=== PATIENT | male | born 1975 | race American Indian/Alaskan Native ===

== ENCOUNTER 2016-06-15 04:15 | Emergency (ER) | payer SELFPAY ==
--- NOTE | 2016-06-15 04:25 | Emergency Department Report ---
Chief Complaint: Skin Rash Stated Complaint: ALLERGIC REACTION Time Seen by Provider: 06/15/16 04:25 - HPI History of Present Illness: Patient here reported that he has a chin and a rash to his arms and he said they 're going away because he was using peroxide. Denies any difficulty breathing, swelling of tongue, fever or chills, cough or problems with swallowing. He said the rash is worse yesterday and it was on his arms and legs. Denies any new medication, food, detergent. - ROS Review of Systems: All systems are negative unless stated in HPI above. - Exam Vital Signs: Vital Signs 06/15/16 04:18 Temperature 97.8 F Pulse Rate 74 Respiratory 18 Rate Blood Pressure 137/87 O2 Sat by Pulse 97 Oximetry Physical Exam: General: This is a 40-year-old male well-nourished well-developed in no acute distress. Mouth: Tongue is normal, uvula is midline, oral airway is patent and no pharyngeal erythema. No peritonsillar abscess. Lungs: There are to auscultate bilaterally, no rhonchi wheezes or rales. CV: S1, S2. Regular rate and rhythm. Extremity: No clubbing, cyanosis or edema. +2 pulses. SKIN: Noted maculopapular rashes scattered sparsely to both forearms. No erythema or drainage. MSE screening note: Focused history and physical exam performed. Due to findings the following was ordered:TBD ED Disposition for MSE Condition: Stable
[2016-06-15 04:29] VITALS: BP 137/87
== END 2016-06-15 04:31 | disposition left against medical advice (07) ==
LOC: ED 04:15
DX: R21 Rash and other nonspecific skin eruption (principal); Z53.21 Procedure and treatment not carried out due to patient leaving prior to being seen by health care provider

== ENCOUNTER 2017-04-07 07:25 | Emergency (ER) | payer SELFPAY ==
[2017-04-07] MEDS ORDERED: DUONEB *Not for PRN Use IH ONE (08:14)
[2017-04-07 08:31] LABS: Hematocrit 42.3 % (35.5-45.6); Hemoglobin 14.5 gm/dl (11.8-15.2); Mean Corpuscular HGB Conc 34 % (32-34); Mean Corpuscular Hemoglobin 32 pg (28-32); Mean Corpuscular Volume 93 fl (84-94); Platelet Count 261 K/mm3 (140-440); Red Blood Count 4.53 M/mm3 (3.65-5.03); Red Cell Distribution Width 12.6 % (13.2-15.2); White Blood Count 10.5 K/mm3 (4.5-11.0)
[2017-04-07 08:44] LABS: INR 0.9 (0.87-1.13)
--- NOTE | 2017-04-07 08:44 | XRay Report ---
AP CHEST :04/07/17 07:25:00 CLINICAL: Hypertension. COMPARISON:02/01/16 FINDINGS: Normal heart and pulmonary vasculature. The lungs are mildly hyperexpanded but clear. The bones and soft tissues are normal. IMPRESSION: Mild pulmonary hyperinflation but otherwise normal.
[2017-04-07 08:45] LABS: Partial Thromboplastin Time 36.6 Sec. (24.2-36.6)
[2017-04-07 08:51] LABS: Anion Gap 17 mmol/L; BUN/Creatinine Ratio 14; Blood Urea Nitrogen 13 mg/dL (9-20); Calcium 8.9 mg/dL (8.4-10.2); Carbon Dioxide 25 mmol/L (22-30); Chloride 102.6 mmol/L (98-107); Glucose 89 mg/dL (75-100); Potassium 3.8 mmol/L (3.6-5.0); Sodium 141 mmol/L (137-145)
[2017-04-07 08:53] LABS: Creatine Kinase MB 4.2 ng/mL (0.0-4.0)
[2017-04-07 08:55] LABS: Alanine Aminotransferase 19 units/L (7-56); Albumin 4.1 g/dL (3.9-5); Albumin/Globulin Ratio 1.3 %; Alkaline Phosphatase 64 units/L (35-129); Bilirubin,Direct < 0.2 mg/dL (0-0.2); Creatine Kinase 301 units/L (55-170); Total Protein 7.3 g/dL (6.3-8.2)
[2017-04-07 09:00] LABS: Urine Drugs of Abuse Note Disclamer
[2017-04-07 09:09] LABS: Basophils % (Manual) 0 % (0.0-1.8); Blastocytes % (Manual) 0 %; RBC Morphology Normal
[2017-04-07 09:10] LABS: Diff Status Complete; Platelet Estimate Cons
[2017-04-07 09:11] LABS: Mucus,Urine FEW /HPF
[2017-04-07 09:12] LABS: Bilirubin,Urine NEG (Negative); Blood,Urine SM (Negative); Ketones,Urine TR mg/dL (Negative); Leukocyte Esterase,Urine NEG (Negative); Nitrite,Urine NEG (Negative); Protein,Urine <15 mg/dL mg/dL (Negative)
[2017-04-07 11:06] VITALS: BP 126/77
--- NOTE | 2017-04-07 11:09 | Emergency Department Report ---
ED General Adult HPI - General Chief complaint: Weakness Stated complaint: ASTHMA Time Seen by Provider: 04/07/17 08:11 Source: patient Mode of arrival: Ambulatory Limitations: No Limitations - History of Present Illness Initial comments: Patient admits his last cocaine use was on Wednesday. However his urine drug screen is still positive for cocaine. 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 He complains of a dull ache in the left precordial area that does not radiate. He states he was released from long term about 2 weeks ago. Since then he states he's had poor appetite and sweating at night. He's had no positive PPD test in the past nor any treatment thereof. He is not currently nauseated. He has not been vomiting. He does not complain of shortness of breath. He does have occasional cough. He was wheezing on arrival and was given a neb. Patient was admitted for chest pain the distant past. He cannot recall what tests were done but he had no specific diagnosis. He has no history of vte. He has had no recent traveling. Initially appears that he has a history of B- CCL phenotype but was not diagnosed with lymphoma when a consult to Dr. Murrell was obtained. -: week(s) (poor appetite for weeks) Location: chest Radiation: non-radiation Quality: aching Consistency: now resolved Improves with: none Worsens with: none Associated Symptoms: denies other symptoms (as above indicated) - Related Data Home Medications Medication Instructions Recorded Confirmed Last Taken ALBUTEROL Inhaler [Proair] 2 puff IH QID PRN 04/07/17 04/07/17 Unknown ALBUTEROL NEB's [Proventil] 2.5 mg IH TID PRN 04/07/17 04/07/17 Unknown Allergies Allergy/AdvReac Type Severity Reaction Status Date / Time hydrocodone bitartrate Allergy Rash Verified 01/31/16 15:21 [From Lortab] oxycodone HCl [From Percocet] Allergy Rash Verified 01/31/16 15:21 lactose AdvReac Unknown Unknown Verified 01/31/16 15:21 ED Review of Systems ROS: Stated complaint: ASTHMA Other details as noted in HPI Constitutional: denies: chills, fever Eyes: denies: eye pain, eye discharge, vision change ENT: denies: ear pain, throat pain Respiratory: cough, wheezing, other (no hemoptysis white sputum). denies: shortness of breath Cardiovascular: chest pain. denies: palpitations Endocrine: no symptoms reported, other (sweating at night) Gastrointestinal: nausea. denies: abdominal pain, diarrhea Genitourinary: denies: urgency, dysuria Musculoskeletal: denies: back pain, joint swelling, arthralgia Skin: denies: rash, lesions Neurological: denies: headache, weakness, paresthesias Psychiatric: denies: anxiety, depression Hematological/Lymphatic: denies: easy bleeding, easy bruising ED Past Medical Hx - Past Medical History Previous Medical History?: Yes Hx GERD: Yes Hx Asthma: Yes - Surgical History Past Surgical History?: Yes Hx Appendectomy: Yes - Social History Smoking Status: Current Every Day Smoker Substance Use Type: None - Medications Home Medications: Home Medications Medication Instructions Recorded Confirmed Last Taken Type ALBUTEROL Inhaler [Proair] 2 puff IH QID PRN 04/07/17 04/07/17 Unknown History ALBUTEROL NEB's [Proventil] 2.5 mg IH TID PRN 04/07/17 04/07/17 Unknown History ED Physical Exam - General Limitations: No Limitations General appearance: alert, in no apparent distress - Head Head exam: Present: atraumatic, normocephalic - Eye Eye exam: Present: normal appearance. Absent: scleral icterus - ENT ENT exam: Present: mucous membranes moist - Neck Neck exam: Present: normal inspection - Respiratory Respiratory exam: Present: normal lung sounds bilaterally (after neb treatment) . Absent: respiratory distress - Cardiovascular Cardiovascular Exam: Present: regular rate, normal rhythm. Absent: systolic murmur, diastolic murmur, rubs, gallop - GI/Abdominal GI/Abdominal exam: Present: soft, normal bowel sounds. Absent: distended, tenderness, guarding, rebound, rigid - Rectal Rectal exam: Present: deferred - Extremities Exam Extremities exam: Present: normal inspection - Back Exam Back exam: Present: normal inspection - Neurological Exam Neurological exam: Present: alert, oriented X3, CN II-XII intact. Absent: motor sensory deficit - Psychiatric Psychiatric exam: Present: normal affect, normal mood - Skin Skin exam: Present: warm, dry, intact, normal color. Absent: rash ED Course Vital Signs 04/07/17 04/07/17 04/07/17 07:51 08:12 08:16 Temperature 98.8 F Pulse Rate 77 60 59 L Pulse Rate [ Anterior Bilateral Throughout] Respiratory 20 14 11 L Rate Respiratory Rate [Anterior Bilateral Throughout] Blood Pressure 154/93 128/92 Blood Pressure [Right] O2 Sat by Pulse 100 98 98 Oximetry 04/07/17 04/07/17 04/07/17 08:30 08:45 08:46 Temperature Pulse Rate 58 L 62 Pulse Rate [ 57 L Anterior Bilateral Throughout] Respiratory 15 14 Rate Respiratory 18 Rate [Anterior Bilateral Throughout] Blood Pressure 128/92 128/92 Blood Pressure [Right] O2 Sat by Pulse 99 98 Oximetry 04/07/17 04/07/17 04/07/17 09:00 09:16 09:23 Temperature Pulse Rate 61 64 Pulse Rate [ Anterior Bilateral Throughout] Respiratory 17 15 18 Rate Respiratory Rate [Anterior Bilateral Throughout] Blood Pressure 129/88 129/88 Blood Pressure [Right] O2 Sat by Pulse 99 98 99 Oximetry 04/07/17 04/07/17 04/07/17 09:24 09:30 09:46 Temperature Pulse Rate 62 56 L Pulse Rate [ 62 Anterior Bilateral Throughout] Respiratory 13 14 Rate Respiratory 18 Rate [Anterior Bilateral Throughout] Blood Pressure 129/88 129/88 Blood Pressure [Right] O2 Sat by Pulse 97 98 Oximetry 04/07/17 04/07/17 04/07/17 10:00 10:16 10:30 Temperature Pulse Rate 56 L 55 L 58 L Pulse Rate [ Anterior Bilateral Throughout] Respiratory 15 14 16 Rate Respiratory Rate [Anterior Bilateral Throughout] Blood Pressure 119/67 119/67 119/67 Blood Pressure [Right] O2 Sat by Pulse 97 96 99 Oximetry 04/07/17 04/07/17 04/07/17 10:46 11:00 11:03 Temperature Pulse Rate 63 67 62 Pulse Rate [ Anterior Bilateral Throughout] Respiratory 21 13 Rate Respiratory Rate [Anterior Bilateral Throughout] Blood Pressure 119/67 119/67 Blood Pressure [Right] O2 Sat by Pulse 99 99 Oximetry 04/07/17 11:05 Temperature 98.8 F Pulse Rate 62 Pulse Rate [ Anterior Bilateral Throughout] Respiratory 18 Rate Respiratory Rate [Anterior Bilateral Throughout] Blood Pressure Blood Pressure 126/77 [Right] O2 Sat by Pulse 100 Oximetry - Reevaluation(s) Reevaluation #1: Patient was advised that admission was warranted. He declines admission and wants to sign out AMA. I told him that his continued cocaine abuse. Certainly lead to and we have not adequately worked up his chest pain. He knows that he is leaving premature and is aware of the risks and is mentally competent to refuse treatment. I informed him that he has some degree of rhabdo and that continuing cocaine abuse. Lead to kidney failure as well. He is aware of that. He states he is ready to leave. 04/07/17 11:10 Reevaluation #3: The patient left before he could be prescribed anything for his asthma or bronchitis or referred for follow-up care. 04/07/17 11:24 ED Medical Decision Making - Lab Data Result diagrams: 04/07/17 08:16 04/07/17 08:16 Laboratory Results - last 24 hr 04/07/17 04/07/17 04/07/17 08:06 08:16 08:16 WBC 10.5 RBC 4.53 Hgb 14.5 Hct 42.3 MCV 93 MCH 32 MCHC 34 RDW 12.6 L Plt Count 261 Add Manual Diff Complete Total Counted 100 Seg Neuts % (Manual) 35.0 L Band Neutrophils % 0 Lymphocytes % (Manual) 49.0 H Reactive Lymphs % (Man) 2.0 Monocytes % (Manual) 13.0 H Eosinophils % (Manual) 1.0 Basophils % (Manual) 0 Metamyelocytes % 0 Myelocytes % 0 Promyelocytes % 0 Blast Cells % 0 Nucleated RBC % Not Reportable Seg Neutrophils # Man 3.7 Band Neutrophils # 0.0 Lymphocytes # (Manual) 5.1 Abs React Lymphs (Man) 0.2 Monocytes # (Manual) 1.4 H Eosinophils # (Manual) 0.1 Basophils # (Manual) 0.0 Metamyelocytes # 0.0 Myelocytes # 0.0 Promyelocytes # 0.0 Blast Cells # 0.0 WBC Morphology Not Reportable Hypersegmented Neuts Not Reportable Hyposegmented Neuts Not Reportable Hypogranular Neuts Not Reportable Smudge Cells Not Reportable Toxic Granulation Not Reportable Toxic Vacuolation Not Reportable Dohle Bodies Not Reportable Pelger-Huet Anomaly Not Reportable Isaias Rods Not Reportable Platelet Estimate Cons Clumped Platelets Not Reportable Plt Clumps, EDTA Not Reportable Large Platelets Not Reportable Giant Platelets Not Reportable Platelet Satelliting Not Reportable Plt Morphology Comment Not Reportable RBC Morphology Normal Dimorphic RBCs Not Reportable Polychromasia Not Reportable Hypochromasia Not Reportable Poikilocytosis Not Reportable Anisocytosis Not Reportable Microcytosis Not Reportable Macrocytosis Not Reportable Spherocytes Not Reportable Pappenheimer Bodies Not Reportable Sickle Cells Not Reportable Target Cells Not Reportable Tear Drop Cells Not Reportable Ovalocytes Not Reportable Helmet Cells Not Reportable [place] Bodies Not Reportable [place] Rings Not Reportable [place] Cells Not Reportable Bite Cells Not Reportable Crenated Cell Not Reportable Elliptocytes Not Reportable Acanthocytes (Spur) Not Reportable Rouleaux Not Reportable Hemoglobin C Crystals Not Reportable Schistocytes Not Reportable Malaria parasites Not Reportable Sam Bodies Not Reportable Hem Pathologist Commnt No PT INR APTT Sodium 141 Potassium 3.8 Chloride 102.6 Carbon Dioxide 25 Anion Gap 17 BUN 13 Creatinine 0.9 Estimated GFR > 60 BUN/Creatinine Ratio 14 Glucose 89 POC Glucose 88 Calcium 8.9 Magnesium Total Bilirubin Direct Bilirubin AST ALT Alkaline Phosphatase Total Creatine Kinase CK-MB (CK-2) CK-MB (CK-2) Rel Index Troponin T < 0.010 NT-Pro-B Natriuret Pep Total Protein Albumin Albumin/Globulin Ratio Urine Color Urine Turbidity Urine pH Ur Specific [place] Urine Protein Urine Glucose (UA) Urine Ketones Urine Blood Urine Nitrite Ur Reducing Substances Urine Bilirubin Urine Ictotest Urine Urobilinogen Ur Leukocyte Esterase Urine WBC (Auto) Urine RBC (Auto) U Epithel Cells (Auto) Urine Mucus Urine Opiates Screen Urine Methadone Screen Ur Barbiturates Screen Ur Phencyclidine Scrn Ur Amphetamines Screen U Benzodiazepines Scrn Urine Cocaine Screen U Marijuana (THC) Screen Drugs of Abuse Note 04/07/17 04/07/17 04/07/17 08:16 08:16 08:55 WBC RBC Hgb Hct MCV MCH MCHC RDW Plt Count Add Manual Diff Total Counted Seg Neuts % (Manual) Band Neutrophils % Lymphocytes % (Manual) Reactive Lymphs % (Man) Monocytes % (Manual) Eosinophils % (Manual) Basophils % (Manual) Metamyelocytes % Myelocytes % Promyelocytes % Blast Cells % Nucleated RBC % Seg Neutrophils # Man Band Neutrophils # Lymphocytes # (Manual) Abs React Lymphs (Man) Monocytes # (Manual) Eosinophils # (Manual) Basophils # (Manual) Metamyelocytes # Myelocytes # Promyelocytes # Blast Cells # WBC Morphology Hypersegmented Neuts Hyposegmented Neuts Hypogranular Neuts Smudge Cells Toxic Granulation Toxic Vacuolation Dohle Bodies Pelger-Huet Anomaly Isaias Rods Platelet Estimate Clumped Platelets Plt Clumps, EDTA Large Platelets Giant Platelets Platelet Satelliting Plt Morphology Comment RBC Morphology Dimorphic RBCs Polychromasia Hypochromasia Poikilocytosis Anisocytosis Microcytosis Macrocytosis Spherocytes Pappenheimer Bodies Sickle Cells Target Cells Tear Drop Cells Ovalocytes Helmet Cells [place] Bodies [place] Rings [place] Cells Bite Cells Crenated Cell Elliptocytes Acanthocytes (Spur) Rouleaux Hemoglobin C Crystals Schistocytes Malaria parasites Sam Bodies Hem Pathologist Commnt PT 12.6 INR 0.90 APTT 36.6 Sodium Potassium Chloride Carbon Dioxide Anion Gap BUN Creatinine Estimated GFR BUN/Creatinine Ratio Glucose POC Glucose Calcium Magnesium 2.00 Total Bilirubin 0.40 Direct Bilirubin < 0.2 AST 19 ALT 19 Alkaline Phosphatase 64 Total Creatine Kinase 301 H CK-MB (CK-2) 4.2 H CK-MB (CK-2) Rel Index 1.3 Troponin T NT-Pro-B Natriuret Pep 15.88 Total Protein 7.3 Albumin 4.1 Albumin/Globulin Ratio 1.3 Urine Color Yellow Urine Turbidity Clear Urine pH 5.0 Ur Specific [place] 1.026 Urine Protein <15 mg/dl Urine Glucose (UA) Neg Urine Ketones Tr Urine Blood Sm Urine Nitrite Neg Ur Reducing Substances Not Reportable Urine Bilirubin Neg Urine Ictotest Not Reportable Urine Urobilinogen 4.0 Ur Leukocyte Esterase Neg Urine WBC (Auto) 1.0 Urine RBC (Auto) 7.0 U Epithel Cells (Auto) < 1.0 Urine Mucus Few Urine Opiates Screen Urine Methadone Screen Ur Barbiturates Screen Ur Phencyclidine Scrn Ur Amphetamines Screen U Benzodiazepines Scrn Urine Cocaine Screen U Marijuana (THC) Screen Drugs of Abuse Note 04/07/17 08:55 WBC RBC Hgb Hct MCV MCH MCHC RDW Plt Count Add Manual Diff Total Counted Seg Neuts % (Manual) Band Neutrophils % Lymphocytes % (Manual) Reactive Lymphs % (Man) Monocytes % (Manual) Eosinophils % (Manual) Basophils % (Manual) Metamyelocytes % Myelocytes % Promyelocytes % Blast Cells % Nucleated RBC % Seg Neutrophils # Man Band Neutrophils # Lymphocytes # (Manual) Abs React Lymphs (Man) Monocytes # (Manual) Eosinophils # (Manual) Basophils # (Manual) Metamyelocytes # Myelocytes # Promyelocytes # Blast Cells # WBC Morphology Hypersegmented Neuts Hyposegmented Neuts Hypogranular Neuts Smudge Cells Toxic Granulation Toxic Vacuolation Dohle Bodies Pelger-Huet Anomaly Isaias Rods Platelet Estimate Clumped Platelets Plt Clumps, EDTA Large Platelets Giant Platelets Platelet Satelliting Plt Morphology Comment RBC Morphology Dimorphic RBCs Polychromasia Hypochromasia Poikilocytosis Anisocytosis Microcytosis Macrocytosis Spherocytes Pappenheimer Bodies Sickle Cells Target Cells Tear Drop Cells Ovalocytes Helmet Cells [place] Bodies [place] Rings [place] Cells Bite Cells Crenated Cell Elliptocytes Acanthocytes (Spur) Rouleaux Hemoglobin C Crystals Schistocytes Malaria parasites Sam Bodies Hem Pathologist Commnt PT INR APTT Sodium Potassium Chloride Carbon Dioxide Anion Gap BUN Creatinine Estimated GFR BUN/Creatinine Ratio Glucose POC Glucose Calcium Magnesium Total Bilirubin Direct Bilirubin AST ALT Alkaline Phosphatase Total Creatine Kinase CK-MB (CK-2) CK-MB (CK-2) Rel Index Troponin T NT-Pro-B Natriuret Pep Total Protein Albumin Albumin/Globulin Ratio Urine Color Urine Turbidity Urine pH Ur Specific [place] Urine Protein Urine Glucose (UA) Urine Ketones Urine Blood Urine Nitrite Ur Reducing Substances Urine Bilirubin Urine Ictotest Urine Urobilinogen Ur Leukocyte Esterase Urine WBC (Auto) Urine RBC (Auto) U Epithel Cells (Auto) Urine Mucus Urine Opiates Screen Presumptive negative Urine Methadone Screen Presumptive negative Ur Barbiturates Screen Presumptive negative Ur Phencyclidine Scrn Presumptive negative Ur Amphetamines Screen Presumptive negative U Benzodiazepines Scrn Presumptive negative Urine Cocaine Screen Presumptive positive U Marijuana (THC) Screen Presumptive negative Drugs of Abuse Note Disclamer - EKG Data -: EKG Interpreted by [place] EKG shows normal: sinus rhythm, axis, intervals, QRS complexes, ST-T waves Rate: bradycardia - EKG Data Interpretation: LVH (consider) - Radiology Data Radiology results: report reviewed (no acute process) Critical care attestation.: If time is entered above; I have spent that time in minutes in the direct care of this critically ill patient, excluding procedure time. ED Disposition Clinical Impression: Cocaine abuse, Monoclonal B-cell lymphocytosis Chest pain Qualifiers: Chest pain type: unspecified Qualified Code(s): R07.9 - Chest pain, unspecified Asthma exacerbation Qualifiers: Asthma severity: moderate Asthma persistence: persistent Qualified Code(s): J45.41 - Moderate persistent asthma with (acute) exacerbation Disposition: DC-07 LEFT AGAINST MED ADVICE Is pt being admited?: No Does the pt Need Aspirin: Yes (left AMA) Condition: Stable Instructions: Chest Pain (ED) Referrals: PRIMARY CARE, [Primary Care Provider] - 3-5 Days Time of Disposition: 11:27
== END 2017-04-07 11:45 | disposition left against medical advice (07) ==
LOC: ED 07:25
DX: J45.41 Moderate persistent asthma with (acute) exacerbation (principal); F14.10 Cocaine abuse, uncomplicated; D72.820 Lymphocytosis (symptomatic); K21.9 Gastro-esophageal reflux disease without esophagitis; J45.909 Unspecified asthma, uncomplicated
CPT/HCPCS: 36415; 71010; 80048; 80074; 80307; 81001; 82550; 82553; 82962; 83735; 83880; 84484; 85007; 85025; 85610; 85730; 93005; 93010; 94640

== ENCOUNTER 2017-12-27 14:57 | Emergency (ER) | payer SELFPAY ==
[2017-12-27 15:23] VITALS: BP 118/75
--- NOTE | 2017-12-27 16:42 | Emergency Department Report ---
ED Back Pain/Injury HPI - General Chief Complaint: Back Pain/Injury Stated Complaint: NECK PAIN/BODY ACHE/ Time Seen by Provider: 12/27/17 16:28 Source: patient Limitations: No Limitations - History of Present Illness Initial Comments: Patient is a 42-year-old -[place] male who is presenting with neck and back strain. Patient was helping remove some heavy boxes several days ago for a neighbor and is now having muscle spasm and pain. Patient states that he also has had a rash on his face and torso and arms. Patient's sleeps in a shelter as been there for approximately 6 weeks. Patient denies any nausea vomiting diarrhea fevers or chills. Quality: aching - Related Data Home Medications Medication Instructions Recorded Confirmed Last Taken ALBUTEROL Inhaler [Proair] 2 puff IH QID PRN 04/07/17 04/07/17 Unknown ALBUTEROL NEB's [Proventil] 2.5 mg IH TID PRN 04/07/17 04/07/17 Unknown Previous Rx's Medication Instructions Recorded Last Taken Type ALBUTEROL Inhaler [ProAir HFA 2 puff IH QID PRN #1 inhalation 04/07/17 Unknown Rx Inhaler] Azithromycin [Zithromax Z-MANUEL] 250 mg PO DAILY #6 tablet 04/07/17 Unknown Rx Ibuprofen [Motrin] 800 mg PO Q8HR PRN #20 tablet 12/27/17 Unknown Rx Permethrin [Elimite] 60 gm TP ONCE #1 bottle 12/27/17 Unknown Rx Triamcinolone 0.1% [Kenalog 0.1% 1 applic TP TID #1 tube 12/27/17 Unknown Rx CREAM] methOCARBAMOL [Robaxin TAB] 500 mg PO Q6H PRN #15 tablet 12/27/17 Unknown Rx predniSONE [Deltasone] 20 mg PO QDAY #5 tab 12/27/17 Unknown Rx Allergies Allergy/AdvReac Type Severity Reaction Status Date / Time morphine Allergy Unknown Verified 12/27/17 15:23 lactose AdvReac Unknown Unknown Verified 01/31/16 15:21 ED Review of Systems ROS: Stated complaint: NECK PAIN/BODY ACHE/ Other details as noted in HPI Comment: All other systems reviewed and negative ED Past Medical Hx - Past Medical History drug and alcohol abuse, recurrent back pain Family history: no significant family history (1/2.5 pack per day) ED Back Pain Physical Exam - Exam General: Vital signs noted. No distress. Alert and acting appropriately. He has multiple raised papules diffusely on the face neck and torso and arms consistent with possible insect bites. These are not present on the palms and soles or in the webspaces Back/Abdomen: No Abdominal Tenderness, No Perithoracic Tenderness (tenderness of rthe Bilateral trapizius), No Perilumbar Tenderness, No Sacroiliac Tenderness , No Flank Tenderness, No Straight Leg Raise Pain Neuro: Yes Normal Sensation, Yes Normal DTR's, Yes Normal Gait, No Motor Weakness ED Course Vital Signs 12/27/17 15:19 Temperature 98.3 F Pulse Rate 98 H Respiratory 18 Rate Blood Pressure 118/75 O2 Sat by Pulse 99 Oximetry Critical care attestation.: If time is entered above; I have spent that time in minutes in the direct care of this critically ill patient, excluding procedure time. ED Disposition Clinical Impression: Muscle strain, Dermatitis Disposition: DC-01 TO HOME OR SELFCARE Is pt being admited?: No Does the pt Need Aspirin: No Condition: Stable Instructions: Muscle Strain (ED) Additional Instructions: The rash is consistent with possible insect bites. Please be sure to wash all sheets in hot water and medication prescribed for him. Referrals: PRIMARY CARE, [Primary Care Provider] - 3-5 Days Time of Disposition: 16:46
== END 2017-12-27 16:54 | disposition home or self-care (01) ==
LOC: ED 14:57
DX: S16.1XXA Strain of muscle, fascia and tendon at neck level, initial encounter (principal); S29.012A Strain of muscle and tendon of back wall of thorax, initial encounter; L30.9 Dermatitis, unspecified; Z88.6 Allergy status to analgesic agent; Z88.8 Allergy status to other drugs, medicaments and biological substances; X50.0XXA Overexertion from strenuous movement or load, initial encounter; Y93.89 Activity, other specified; Y99.8 Other external cause status; Y92.89 Other specified places as the place of occurrence of the external cause
CPT/HCPCS: 99282

== ENCOUNTER 2019-03-10 12:25 | Emergency (ER) | payer SELFPAY ==
[2019-03-10 13:03] VITALS: BP 128/88
--- NOTE | 2019-03-10 13:08 | Emergency Department Report ---
- General Chief Complaint: Upper Respiratory Infection Stated Complaint: CHEST PAIN/BIJAN/BODY ACHE Time Seen by Provider: 03/10/19 13:03 Source: patient Mode of arrival: Ambulatory Limitations: No Limitations - History of Present Illness MD Complaint: cough, sore throat, rhinorrhea, nasal congestion - Related Data Home Medications Medication Instructions Recorded Confirmed Last Taken ALBUTEROL Inhaler (OR & NICU) 2 puff IH QID PRN 04/07/17 04/07/17 Unknown [Proair] ALBUTEROL NEB's [Proventil] 2.5 mg IH TID PRN 04/07/17 04/07/17 Unknown Previous Rx's Medication Instructions Recorded Last Taken Type ALBUTEROL Inhaler (OR & NICU) 2 puff IH QID PRN #1 inhalation 04/07/17 Unknown Rx [ProAir HFA Inhaler] Azithromycin [Zithromax Z-MANUEL] 250 mg PO DAILY #6 tablet 04/07/17 Unknown Rx Ibuprofen [Motrin] 800 mg PO Q8HR PRN #20 tablet 12/27/17 Unknown Rx Permethrin [Elimite] 60 gm TP ONCE #1 bottle 12/27/17 Unknown Rx Triamcinolone 0.1% [Kenalog 0.1% 1 applic TP TID #1 tube 12/27/17 Unknown Rx CREAM] methOCARBAMOL [Robaxin TAB] 500 mg PO Q6H PRN #15 tablet 12/27/17 Unknown Rx predniSONE [Deltasone] 20 mg PO QDAY #5 tab 12/27/17 Unknown Rx ALBUTEROL NEB's [Proventil 0.083% 2.5 mg IH TID PRN #30 neb 03/10/19 Unknown Rx NEBS] Azithromycin [Zithromax] 500 mg PO QDAY #3 tablet 03/10/19 Unknown Rx Benzonatate [Tessalon Perles] 100 mg PO Q8HR #30 capsule 03/10/19 Unknown Rx Mometasone Furoate [Nasonex] 1 spray NS DAILY #1 spray.pump 03/10/19 Unknown Rx predniSONE [Deltasone] 50 mg PO QDAY #5 tab 03/10/19 Unknown Rx Allergies Allergy/AdvReac Type Severity Reaction Status Date / Time morphine Allergy Unknown Verified 12/27/17 15:23 lactose AdvReac Unknown Unknown Verified 01/31/16 15:21 ED Review of Systems ROS: Stated complaint: CHEST PAIN/BIJAN/BODY ACHE Other details as noted in HPI Comment: All other systems reviewed and negative ED Past Medical Hx - Past Medical History Previous Medical History?: Yes Hx GERD: Yes Hx Asthma: Yes Additional medical history: drug and alcohol abuse, recurrent back pain - Surgical History Past Surgical History?: Yes Hx Appendectomy: Yes - Social History Smoking Status: Current Every Day Smoker Substance Use Type: Alcohol - Medications Home Medications: Home Medications Medication Instructions Recorded Confirmed Last Taken Type ALBUTEROL Inhaler (OR & NICU) 2 puff IH QID PRN #1 inhalation 04/07/17 Unknown Rx [ProAir HFA Inhaler] ALBUTEROL Inhaler (OR & NICU) 2 puff IH QID PRN 04/07/17 04/07/17 Unknown History [Proair] ALBUTEROL NEB's [Proventil] 2.5 mg IH TID PRN 04/07/17 04/07/17 Unknown History Azithromycin [Zithromax Z-MANUEL] 250 mg PO DAILY #6 tablet 04/07/17 Unknown Rx Ibuprofen [Motrin] 800 mg PO Q8HR PRN #20 tablet 12/27/17 Unknown Rx Permethrin [Elimite] 60 gm TP ONCE #1 bottle 12/27/17 Unknown Rx Triamcinolone 0.1% [Kenalog 0.1% 1 applic TP TID #1 tube 12/27/17 Unknown Rx CREAM] methOCARBAMOL [Robaxin TAB] 500 mg PO Q6H PRN #15 tablet 12/27/17 Unknown Rx predniSONE [Deltasone] 20 mg PO QDAY #5 tab 12/27/17 Unknown Rx ALBUTEROL NEB's [Proventil 0.083% 2.5 mg IH TID PRN #30 neb 03/10/19 Unknown Rx NEBS] Azithromycin [Zithromax] 500 mg PO QDAY #3 tablet 03/10/19 Unknown Rx Benzonatate [Tessalon Perles] 100 mg PO Q8HR #30 capsule 03/10/19 Unknown Rx Mometasone Furoate [Nasonex] 1 spray NS DAILY #1 spray.pump 03/10/19 Unknown Rx predniSONE [Deltasone] 50 mg PO QDAY #5 tab 03/10/19 Unknown Rx ED Physical Exam - General Limitations: No Limitations General appearance: alert, in no apparent distress - Head Head exam: Present: atraumatic, normocephalic - Eye Eye exam: Present: normal appearance, PERRL, EOMI Pupils: Present: normal accommodation - ENT ENT exam: Present: normal exam, normal orophraynx, mucous membranes moist, other (nasasl congestion and erythema to pharynx) - Neck Neck exam: Present: normal inspection - Respiratory Respiratory exam: Present: normal lung sounds bilaterally, wheezes. Absent: respiratory distress, chest wall tenderness, accessory muscle use - Cardiovascular Cardiovascular Exam: Present: regular rate, normal rhythm. Absent: systolic murmur, diastolic murmur, rubs, gallop - GI/Abdominal GI/Abdominal exam: Present: soft, normal bowel sounds - Rectal Rectal exam: Present: deferred - Extremities Exam Extremities exam: Present: normal inspection - Back Exam Back exam: Present: normal inspection. Absent: CVA tenderness (R), CVA tenderness (L) - Neurological Exam Neurological exam: Present: alert, oriented X3, CN II-XII intact, normal gait - Psychiatric Psychiatric exam: Present: normal affect, normal mood - Skin Skin exam: Present: warm, dry, intact, normal color. Absent: rash ED Course Vital Signs 03/10/19 13:01 Temperature 98.4 F Pulse Rate 58 L Respiratory 16 Rate Blood Pressure 128/88 O2 Sat by Pulse 97 Oximetry Critical care attestation.: If time is entered above; I have spent that time in minutes in the direct care of this critically ill patient, excluding procedure time. ED Disposition Clinical Impression: URI (upper respiratory infection), Cough Disposition: TO HOME OR SELFCARE Is pt being admited?: No Does the pt Need Aspirin: No Condition: Stable Instructions: Dextromethorphan (By mouth), Cold Symptoms (ED), Reactive Airways Disease (ED) Additional Instructions: Do nont forget to cook pickled meat you nebulizer Referrals: [facility] [Provider Group] - 3-5 Days
== END 2019-03-10 14:00 | disposition home or self-care (01) ==
LOC: ED 12:25
DX: J06.9 Acute upper respiratory infection, unspecified (principal)
CPT/HCPCS: 93005; 93010; 99282

== ENCOUNTER 2019-09-01 00:26 | Emergency (ER) | payer SELFPAY ==
--- NOTE | 2019-09-01 01:08 | XRay Report ---
CHEST 2 VIEWS INDICATION / CLINICAL INFORMATION: sob. COMPARISON: 07/27/19 FINDINGS: SUPPORT DEVICES: None. HEART / MEDIASTINUM: No significant abnormality. LUNGS / PLEURA: No significant pulmonary or pleural abnormality. No pneumothorax. ADDITIONAL FINDINGS: No significant additional findings. IMPRESSION: 1. No acute findings. No significant change. Signer Name: Shanta Skaggs MD Signed: 09/01/2019 1:03 AM Workstation Name: [id number]
[2019-09-01] MEDS ORDERED: HYDROcodone/ACETAMINOPHEN 5-325 MG TAB PO ONE (02:01)
[2019-09-01] MEDS ORDERED: HYDROcodone/ACETAMINOPHEN 5-325 MG TAB ONE (02:03)
[2019-09-01 02:15] LABS: Hematocrit 46.7 % (35.5-45.6); Hemoglobin 16.4 gm/dl (11.8-15.2); Mean Corpuscular HGB Conc 35 % (32-34); Mean Corpuscular Volume 93 fl (84-94); Red Blood Count 5.02 M/mm3 (3.65-5.03)
[2019-09-01 02:38] LABS: Alanine Aminotransferase 23 units/L (7-56); Albumin 4.7 g/dL (3.9-5); BUN/Creatinine Ratio 10; Blood Urea Nitrogen 12 mg/dL (9-20); Calcium 9.8 mg/dL (8.4-10.2); Hemolysis Index 4
[2019-09-01 03:01] LABS: Platelet Count 330 K/mm3 (140-440)
--- NOTE | 2019-09-01 03:25 | Emergency Department Report ---
ED Shortness of Breath HPI - General Chief Complaint: Dyspnea/Respdistress Stated Complaint: HEADACHE, NECK PAIN Time Seen by Provider: 09/01/19 01:39 Source: patient Mode of arrival: Ambulatory Limitations: No Limitations - History of Present Illness MD Complaint: shortness of breath, cough Onset/Timin -: days(s) Radiation: neck Severity: moderate Pain Scale: 4 Quality: aching, sharp Consistency: constant Improves With: nothing Worsens With: nothing Associated Symptoms: chest pain, pain with inspiration, fever, cough, sputum production Treatments Prior to Arrival: none - Related Data Home Medications Medication Instructions Recorded Confirmed Last Taken ALBUTEROL NEB's [Proventil] 2.5 mg IH TID PRN 04/07/17 04/07/17 Unknown Albuterol INH(or & Nicu Only) 2 puff IH QID PRN 04/07/17 04/07/17 Unknown [Proair] Previous Rx's Medication Instructions Recorded Last Taken Type Albuterol INH(or & Nicu Only) 2 puff IH QID PRN #1 inhalation 04/07/17 Unknown Rx [ProAir HFA Inhaler] Azithromycin [Zithromax Z-MANUEL] 250 mg PO DAILY #6 tablet 04/07/17 Unknown Rx Ibuprofen [Motrin] 800 mg PO Q8HR PRN #20 tablet 12/27/17 Unknown Rx Permethrin [Elimite] 60 gm TP ONCE #1 bottle 12/27/17 Unknown Rx Triamcinolone 0.1% [Kenalog 0.1% 1 applic TP TID #1 tube 12/27/17 Unknown Rx CREAM] methOCARBAMOL [Robaxin TAB] 500 mg PO Q6H PRN #15 tablet 12/27/17 Unknown Rx predniSONE [Deltasone] 20 mg PO QDAY #5 tab 12/27/17 Unknown Rx ALBUTEROL NEB's [Proventil 0.083% 2.5 mg IH TID PRN #30 neb 03/10/19 Unknown Rx NEBS] Azithromycin [Zithromax] 500 mg PO QDAY #3 tablet 03/10/19 Unknown Rx Benzonatate [Tessalon Perles] 100 mg PO Q8HR #30 capsule 03/10/19 Unknown Rx Mometasone Furoate [Nasonex] 1 spray NS DAILY #1 spray.pump 03/10/19 Unknown Rx predniSONE [Deltasone] 50 mg PO QDAY #5 tab 03/10/19 Unknown Rx Albuterol INH(or & Nicu Only) 2 puff IH QID PRN #8.5 gram 09/01/19 Unknown Rx [ProAir HFA Inhaler] Amoxicillin/Potassium Clav 1 each PO BID 10 Days #20 tablet 09/01/19 Unknown Rx [Augmentin 875-125 Tablet] Ibuprofen Oral Liqd [Motrin Oral 800 mg PO TID PRN #30 bottle 09/01/19 Unknown Rx Liq 100 mg/5 ml] Allergies Allergy/AdvReac Type Severity Reaction Status Date / Time morphine Allergy Unknown Verified 12/27/17 15:23 lactose AdvReac Unknown Unknown Verified 01/31/16 15:21 ED Review of Systems ROS: Stated complaint: HEADACHE, NECK PAIN Other details as noted in HPI Constitutional: chills, fever, malaise Eyes: denies: eye pain, eye discharge, vision change ENT: throat pain, congestion. denies: ear pain Respiratory: cough, shortness of breath. denies: wheezing Cardiovascular: denies: chest pain, palpitations Endocrine: no symptoms reported Gastrointestinal: denies: abdominal pain, nausea, vomiting, diarrhea Genitourinary: denies: urgency, dysuria Musculoskeletal: denies: back pain, joint swelling, arthralgia Skin: denies: rash, lesions Neurological: denies: headache, weakness, numbness, paresthesias, confusion Psychiatric: denies: anxiety, depression Hematological/Lymphatic: denies: easy bleeding, easy bruising ED Past Medical Hx - Past Medical History Previous Medical History?: Yes Hx GERD: Yes Hx Asthma: Yes Additional medical history: drug and alcohol abuse, recurrent back pain - Surgical History Past Surgical History?: Yes Hx Appendectomy: Yes - Social History Smoking Status: Current Every Day Smoker Substance Use Type: Alcohol, Cocaine, Marijuana - Medications Home Medications: Home Medications Medication Instructions Recorded Confirmed Last Taken Type ALBUTEROL NEB's [Proventil] 2.5 mg IH TID PRN 04/07/17 04/07/17 Unknown History Albuterol INH(or & Nicu Only) 2 puff IH QID PRN #1 inhalation 04/07/17 Unknown Rx [ProAir HFA Inhaler] Albuterol INH(or & Nicu Only) 2 puff IH QID PRN 04/07/17 04/07/17 Unknown History [Proair] Azithromycin [Zithromax Z-MANUEL] 250 mg PO DAILY #6 tablet 04/07/17 Unknown Rx Ibuprofen [Motrin] 800 mg PO Q8HR PRN #20 tablet 12/27/17 Unknown Rx Permethrin [Elimite] 60 gm TP ONCE #1 bottle 12/27/17 Unknown Rx Triamcinolone 0.1% [Kenalog 0.1% 1 applic TP TID #1 tube 12/27/17 Unknown Rx CREAM] methOCARBAMOL [Robaxin TAB] 500 mg PO Q6H PRN #15 tablet 12/27/17 Unknown Rx predniSONE [Deltasone] 20 mg PO QDAY #5 tab 12/27/17 Unknown Rx ALBUTEROL NEB's [Proventil 0.083% 2.5 mg IH TID PRN #30 neb 03/10/19 Unknown Rx NEBS] Azithromycin [Zithromax] 500 mg PO QDAY #3 tablet 03/10/19 Unknown Rx Benzonatate [Tessalon Perles] 100 mg PO Q8HR #30 capsule 03/10/19 Unknown Rx Mometasone Furoate [Nasonex] 1 spray NS DAILY #1 spray.pump 03/10/19 Unknown Rx predniSONE [Deltasone] 50 mg PO QDAY #5 tab 03/10/19 Unknown Rx Albuterol INH(or & Nicu Only) 2 puff IH QID PRN #8.5 gram 09/01/19 Unknown Rx [ProAir HFA Inhaler] Amoxicillin/Potassium Clav 1 each PO BID 10 Days #20 tablet 09/01/19 Unknown Rx [Augmentin 875-125 Tablet] Ibuprofen Oral Liqd [Motrin Oral 800 mg PO TID PRN #30 bottle 09/01/19 Unknown Rx Liq 100 mg/5 ml] ED Physical Exam - General Limitations: No Limitations General appearance: alert, in no apparent distress - Head Head exam: Present: atraumatic, normocephalic - Eye Eye exam: Present: normal appearance, PERRL, EOMI Pupils: Present: normal accommodation - ENT ENT exam: Present: normal exam, normal orophraynx, mucous membranes moist, TM's normal bilaterally, normal external ear exam - Expanded ENT Exam Expanded Ear exam: Present: normal external inspection TM/Canal exam: Erythema: Right TM, Left TM Mouth exam: Absent: trismus Throat exam: Positive: normal inspection, tonsillar erythema, tonsillomegaly. Negative: tonsillar exudate, R peritonsillar mass, L peritonsillar mass - Neck Neck exam: Present: normal inspection, full ROM. Absent: tenderness, meningismus, lymphadenopathy, thyromegaly - Expanded Neck Exam Expanded Neck exam: Absent: tenderness, midline deformity, anterior neck swelling, thyroid mass, carotid bruit, tracheal deviation - Respiratory Respiratory exam: Present: normal lung sounds bilaterally, chest wall tenderness. Absent: respiratory distress, wheezes, rales, rhonchi, stridor - Cardiovascular Cardiovascular Exam: Present: regular rate, normal rhythm, normal heart sounds. Absent: systolic murmur, diastolic murmur, rubs, gallop - GI/Abdominal GI/Abdominal exam: Present: soft, normal bowel sounds. Absent: distended, tenderness, bruit, hernia - Rectal Rectal exam: Present: deferred - Extremities Exam Extremities exam: Present: normal inspection, full ROM, normal capillary refill - Back Exam Back exam: Present: normal inspection, full ROM. Absent: tenderness, CVA tenderness (R), CVA tenderness (L) - Neurological Exam Neurological exam: Present: alert, oriented X3, CN II-XII intact, normal gait, reflexes normal - Psychiatric Psychiatric exam: Present: normal affect, normal mood - Skin Skin exam: Present: warm, dry, intact, normal color. Absent: rash ED Course Vital Signs 09/01/19 09/01/19 00:32 03:16 Temperature 99.0 F 98.3 F Pulse Rate 96 H 79 Respiratory 20 17 Rate Blood Pressure 125/88 Blood Pressure 119/73 [Left] O2 Sat by Pulse 97 97 Oximetry ED Medical Decision Making - Lab Data Result diagrams: 09/01/19 01:58 09/01/19 01:58 Labs 09/01/19 09/01/19 09/01/19 01:50 01:58 01:58 WBC 17.3 H RBC 5.02 Hgb 16.4 H Hct 46.7 H MCV 93 MCH 33 H MCHC 35 H RDW 13.0 L Plt Count 330 Lymph # Construction Assistant D-Dimer Sodium 140 Potassium 3.7 Chloride 99.9 Carbon Dioxide 29 Anion Gap 15 BUN 12 Creatinine 1.2 Estimated GFR > 60 BUN/Creatinine Ratio 10 Glucose 101 H Lactic Acid Calcium 9.8 Total Bilirubin 0.70 AST 20 ALT 23 Alkaline Phosphatase 82 Total Protein 8.2 Albumin 4.7 Albumin/Globulin Ratio 1.3 Influenza A (Rapid) Negative Influenza B (Rapid) Negative Group A Strep Rapid Negative 09/01/19 09/01/19 01:58 01:58 WBC RBC Hgb Hct MCV MCH MCHC RDW Plt Count Lymph # D-Dimer 191.45 Sodium Potassium Chloride Carbon Dioxide Anion Gap BUN Creatinine Estimated GFR BUN/Creatinine Ratio Glucose Lactic Acid 0.60 L Calcium Total Bilirubin AST ALT Alkaline Phosphatase Total Protein Albumin Albumin/Globulin Ratio Influenza A (Rapid) Influenza B (Rapid) Group A Strep Rapid - EKG Data Interpretation: normal EKG - Radiology Data Radiology results: report reviewed, image reviewed Findings Reporting MD: Shanta Skaggs Dictation Time: September 01, 2019 00:36 Secretary Administrative Assistant: Not available [facility] Administrator Date: CHEST 1 VIEW INDICATION / CLINICAL INFORMATION: Chest Pain. COMPARISON: None available. FINDINGS: SUPPORT DEVICES: None. HEART / MEDIASTINUM: No significant abnormality. LUNGS / PLEURA: No significant pulmonary or pleural abnormality. No pneumothorax. ADDITIONAL FINDINGS: No significant additional findings. IMPRESSION: 1. No acute findings. Signer Name: Shanta Skaggs MD Signed: 09/01/2019 12:36 AM Workstation Name: [id number] - Medical Decision Making Chest x-ray is normal no opacities no infiltrates. Lung sounds are clear no wheezing rales or rhonchi. CBC noted for WBC of 17. Lactic acid normal other labs normal. Patient is currently tolerating p.o. intake without symptoms. He now denies shortness of breath fevers or chills at this time. He is ambulatory with steady gait with no acute distress. Given symptoms sore throat, cough, shortness of breath; Patient advised of the possible /suspected COVID 19 Virus versus bronchitis. Plan Augmentin po prn, ibuprofen, Self Qaurantine at home as much as possible , wear mask if need to go out. follow up with you doctor in 2- 3 days. Critical care attestation.: If time is entered above; I have spent that time in minutes in the direct care of this critically ill patient, excluding procedure time. ED Disposition Clinical Impression: Suspected 2019 novel coronavirus infection URI (upper respiratory infection) Qualifiers: URI type: unspecified viral URI Qualified Code(s): J06.9 - Acute upper respiratory infection, unspecified Disposition: DC-01 TO HOME OR SELFCARE Is pt being admited?: No Does the pt Need Aspirin: No Condition: Stable Instructions: COVID-19, Acute Bronchitis (ED) Prescriptions: Amoxicillin/Potassium Clav [Augmentin 205-125 Tablet] 1 each PO BID 10 Days #20 tablet Ibuprofen Oral Liqd [Motrin Oral Liq 100 mg/5 ml] 800 mg PO TID PRN #30 bottle PRN Reason: pain fever Albuterol INH(or & Nicu Only) [ProAir HFA Inhaler] 2 puff IH QID PRN #8.5 gram PRN Reason: Shortness Of Breath Referrals: JULIAN SAUCEDO MD [Staff Physician] - 3-5 Days Forms: Work/School Release Form(ED) Time of Disposition: 03:47
[2019-09-01 03:29] VITALS: BP 119/73
[2019-09-01] MEDS ORDERED: dexAMETHasone 20 MG/5 ML VIAL IV ONE (03:30)
[2019-09-01] MEDS ORDERED: KETOROLAC 30 MG/1 ML INJ IV ONE (03:30)
[2019-09-01] MEDS ORDERED: METOCLOPRAMIDE 10 MG/2 ML INJ IV ONE (03:31)
[2019-09-01] MEDS ORDERED: diphenhydrAMINE 50 MG/ML VIAL IV PRN (03:31)
[2019-09-01 04:07] LABS: Band Neutrophils # (Manual) 0.2 K/mm3; Basophils % (Manual) 0 % (0.0-1.8); Total Cells Counted 100
[2019-09-01 04:09] LABS: Anisocytosis 1+; Macrocytosis 1+
[2019-09-01 04:10] LABS: Platelet Estimate Consistent w Auto
== END 2019-09-01 04:00 | disposition home or self-care (01) ==
LOC: ED 00:26
DX: J06.9 Acute upper respiratory infection, unspecified (principal); K21.9 Gastro-esophageal reflux disease without esophagitis; J45.909 Unspecified asthma, uncomplicated; F17.200 Nicotine dependence, unspecified, uncomplicated; F12.10 Cannabis abuse, uncomplicated; Z20.828 Contact with and (suspected) exposure to other viral communicable diseases; Z90.49 Acquired absence of other specified parts of digestive tract; Z79.1 Long term (current) use of non-steroidal anti-inflammatories (NSAID); Z79.2 Long term (current) use of antibiotics; Z79.899 Other long term (current) drug therapy; Z88.8 Allergy status to other drugs, medicaments and biological substances
CPT/HCPCS: 36415; 71046; 80053; 82140; 85007; 85025; 85379; 87116; 87400; 87430; 96374; 96375; 99284; J1100; J1200; J1885; J2765